=== PATIENT | male | born 1975 | race African-American/Black ===

== ENCOUNTER 2017-12-28 20:06 | Emergency (ER) | payer BC ==
[~2017-12-28] VITALS: Ht 172.7 cm; Wt 124.7 kg
--- OUTSIDE RECORDS SUMMARY | 2017-12-28 20:09 | XMS REPORT | Clinical Summary ---
Author Author MARIYA [facility] Address Unknown Phone Unavailable Care Team Providers Care Medical Geneticist Name Role Phone PCP Unavailable Allergies No Known Allergies Current Medications Prescription Sig. Disp. Refills Start End Date Status Date ARIPiprazole (ABILIFY) 5 Take 5 mg by mouth Active MG tablet nightly. lithium 300 MG capsule Take 300 mg by mouth Active nightly. prasugrel (EFFIENT) 10 mg Take 1 tablet (10 mg 30 tablet 1 06/13/20 Active Tab tablet total) by mouth daily. 15 ATORVASTATIN CALCIUM Take by mouth daily. Active (ATORVASTATIN ORAL) aspirin 81 MG EC tablet Take 81 mg by mouth Active daily. Active Problems Problem Noted Date Bipolar 1 disorder ([facility]) 06/13/2015 STEMI (ST elevation myocardial infarction) ([facility]) 06/09/2015 Social History Tobacco Use Types Packs/Day Years Used Date Never Smoker Smokeless Tobacco: Never Used Alcohol Use Drinks/Week oz/Week Comments Yes social drinker Sex Assigned at Date Recorded Not on file Last Filed Vital Signs Not on file Plan of Treatment Not on file Implants Implanted Type Area Online Community Manager Device Expiration Model / Identifier Date Serial / Lot Promus Premier Stents-Cor Right: ubigrate 10/07/2016 [id number] Implanted: Qty: 1 on 06/09/2015 [email or web address] [id number] / / [id number] Promus Premier Stents-Cor Right: ubigrate 07/09/2016 [id number] Implanted: Qty: 1 on 06/09/2015 [email or web address] Heart Lever [id number] / / [id number] Results Not on fileafter 12/27/2016
--- OUTSIDE RECORDS SUMMARY | 2017-12-28 20:09 | XMS REPORT ---
Author Author [facility] Address Unknown Phone Unavailable Care Team Providers Care Balance Clerk Name Role Phone SERGIO DOBBINS Unavailable Unavailable Problems This patient has no known problems. Allergies, Adverse Reactions, Alerts This patient has no known allergies or adverse reactions. Medications This patient has no known medications. Results Test Description Test Time Test Comments Text Results Atomic Results Result Comments Comprehensive Metabolic Panel 2016-11-22 09:13:00 Sodium (test code=NA) 139 mmol/L 135-145 Potassium (test code=K) 4.1 mmol/L 3.5-5.1 Chloride (test code=CL) 103 mmol/L 98-105 Carbon Dioxide (test code=CO2) 27 mmol/L 22-29 Glucose (test code=GLU) 95 mg/dL 70-115 Blood Urea Nitrogen (test code=BUN) 9 mg/dL 6-20 Creatinine (test code=CREAT) 1.2 mg/dL 0.7-1.2 Calcium (test code=CA) 9.4 mg/dL 8.3-10.5 Prot Total (test code=TP) 7.1 g/dL 6.4-8.3 Albumin (test code=ALB) 4.3 g/dL 3.5-5.2 A/G Ratio (test code=AGRATIO) 1.5 Ratio Globulin (test code=GLOB) 2.8 2.9-3.1 Bili Total (test code=TBIL) 1.0 mg/dL 0.1-0.9 Alk Phos (test code=APHOS) 64 U/L 40-129 AST (test code=AST) 37 U/L 1-40 ALT (test code=ALT) 63 U/L 1-41 BUN/Creatinine Ratio (test code=BCRATIO) 7.5 Anion Gap (test code=AGAP) 9 mmol/L 7-16 Estimated GFR (test code=GFR) >60 mL/min/1.73m2 eGFR (estimated Glomerular Filtration Rate) is an estimated value,calculated from the patient's serum creatinine using the MDRD equation.It is NOT the patient's actual GFR. The eGFR provides a more clinicallyuseful measure of kidney disease than serum creatinine alone.This calculation takes sex and race into account, if the informationis provided. If the race is not provided, and the patient isAfrican- [place], multiply by 1.212. If sex is not provided, and thepatient is female, multiply by 0.742. Results for patients <18 years ofage have not been validated by the MDRD study and should be interpretedwith caution.eGFR Result Interpretation:eGFR > or=60 is in the Normal RangeeGFR < 60 may mean kidney diseaseeGFR < 15 may mean kidney failureRanges recommended by the National Kidney Foundation,http://nkdep.nih.gov [id number] 09:13:00* Test Item Value Reference Range Comments [place] (test code=LI) 0.12 mmol/L 0.6-1.2 Comprehensive Metabolic [id number] 08:36:00* Test Item Value Reference Range Comments Sodium (test code=NA) CANCELED mmol/L 135-145 The released value 140 was canceled by JO on 11/22/2016 08:36 Potassium (test code=K) CANCELED mmol/L 3.5-5.1 The released value 4.1 was canceled by JO on 11/22/2016 08:36 Chloride (test code=CL) CANCELED mmol/L 98-105 The released value 17 was canceled by JO on 11/22/2016 08:36 Carbon Dioxide (test code=CO2) CANCELED mmol/L 22-29 The released value 18 was canceled by JO on 11/22/2016 08:36 Glucose (test code=GLU) CANCELED mg/dL 70-115 The released value 101 was canceled by JO on 11/22/2016 08:36 Blood Urea Nitrogen (test code=BUN) CANCELED mg/dL 6-20 The released value 9 was canceled by JO on 11/22/2016 08:36 Creatinine (test code=CREAT) CANCELED mg/dL 0.7-1.2 The released value 1.2 was canceled by JO on 11/22/2016 08:36 Calcium (test code=CA) CANCELED mg/dL 8.3-10.5 The released value 9.4 was canceled by JO on 11/22/2016 08:36 Prot Total (test code=TP) CANCELED g/dL 6.4-8.3 The released value 7.0 was canceled by JO on 11/22/2016 08:36 Albumin (test code=ALB) CANCELED g/dL 3.5-5.2 The released value 4.3 was canceled by JO on 11/22/2016 08:36 A/G Ratio (test code=AGRATIO) CANCELED Ratio The released value 1.6 was canceled by JO on 11/22/2016 08:36 Globulin (test code=GLOB) CANCELED 2.9-3.1 The released value 2.7 was canceled by JO on 11/22/2016 08:36 Bili Total (test code=TBIL) CANCELED mg/dL 0.1-0.9 The released value 1.0 was canceled by JO on 11/22/2016 08:36 Alk Phos (test code=APHOS) CANCELED U/L 40-129 The released value 64 was canceled by JO on 11/22/2016 08:36 AST (test code=AST) CANCELED U/L 1-40 The released value 40 was canceled by JO on 11/22/2016 08:36 ALT (test code=ALT) CANCELED U/L 1-41 The released value 60 was canceled by JO on 11/22/2016 08:36 BUN/Creatinine Ratio (test code=BCRATIO) CANCELED The released value 7.5 was canceled by JO on 11/22/2016 08:36 Anion Gap (test code=AGAP) CANCELED mmol/L 7-16 The released value 105 was canceled by JO on 11/22/2016 08:36 Estimated GFR (test code=GFR) CANCELED mL/min/1.73m2 eGFR (estimated Glomerular Filtration Rate) is an estimated value,calculated from the patient's serum creatinine using the MDRD equation.It is NOT the patient's actual GFR. The eGFR provides a more clinicallyuseful measure of kidney disease than serum creatinine alone.This calculation takes sex and race into account, if the informationis provided. If the race is not provided, and the patient isAfrican- [place], multiply by 1.212. If sex is not provided, and thepatient is female, multiply by 0.742. Results for patients <18 years ofage have not been validated by the MDRD study and should be interpretedwith caution.eGFR Result Interpretation:eGFR > or=60 is in the Normal RangeeGFR < 60 may mean kidney diseaseeGFR < 15 may mean kidney failureRanges recommended by the National Kidney Foundation,http://nkdep.nih.govThe released value >60 was canceled by JO on 11/22/2016 08:36 [id number] 07:58:00* Test Item Value Reference Range Comments [place] (test code=LI) 0.10 mmol/L 0.6-1.2 [id number] 07:42:00* Test Item Value Reference Range Comments Amphetamine (test code=AMPH) Negative Negative For diagnostic purposes only , positive results should always be assessedin conjunctionwith the patient's medical history,clinical examination and otherfindings.To fulfill legal requirements, a more specific alternate chemical methodmust be used inorder to obtain a Confirmed analytical result. GC/MS is the preferred confirmatory method. Barbiturates (test code=LAUREN) Negative Negative Benzodiazepine (test code=JUANITA) Negative Negative Cocaine (test code=COCA) Negative Negative Methadone (test code=MTHD) Negative Negative Opiates (test code=OPIA) Negative Negative PCP (test code=PCP) Negative Negative Propoxyphene (test code=PROPOX) Negative Negative THC (test code=THC) Negative Negative Alcohol, Urine (test code=ETOHU) <0.01 g/dL 0.00-0.01 Urinalysis [id number] 07:02:00* Test Item Value Reference Range Comments Color (test code=COLOR) Yellow Yellow,Straw,Pl yellow Clarity (test code=CLAR) Clear Clear Specific [place] (test code=SPGR) 1.027 1.001-1.035 pH (test code=PH) 6.5 5.0-9.0 Ketone (test code=KET) 5 mg/dL Negative Glucose (test code=GLUCUR) Negative mg/dL Negative Protein (test code=PROT) 25 mg/dL Negative Bilirubin (test code=BILI) Negative mg/dL Negative Occult Blood (test code=UDOB) Negative Negative Urobilinogen (test code=UROB) 1.0 mg/dL 0.2-1.0 Nitrite (test code=NIT) Negative Negative Leuk Esterase (test code=LEUK) Small Negative Micros Exam (test code=MEXAM) Indicated Epithelial Cells (test code=EPI) 3-5 /LPF 0-30 WBC, Urine (test code=UWBC) 5-10 /HPF 0-5 RBC, Urine (test code=URBC) 5-10 /HPF 0-5 Bacteria (test code=BACT) None /HPF CBC with [id number] 06:48:00* Test Item Value Reference Range Comments WBC (test code=WBC) 5.3 K/cumm 4.4-10.5 RBC (test code=RBC) 5.69 M/cumm 4.10-5.70 Hemoglobin (test code=HGB) 14.8 gm/dL 13.4-17.4 Hematocrit (test code=HCT) 46.3 % 38.7-52.0 MCV (test code=MCV) 81.5 fL 80-100 MCH (test code=MCH) 26.1 pg 27.0-32.5 MCHC (test code=MCHC) 32.0 g/dL 32.0-37.5 RDW (test code=RDW) 15.3 % 11.5-14.5 Platelet Count (test code=PLTCT) 275 K/cumm 140-440 MPV (test code=MPV) 8.0 fL Diff Method (test code=DIFFM) Auto Neutrophil (test code=NEUT) 58.3 % 36-70 Lymphocyte (test code=LYMPH) 32.2 % 12-44 Monocyte (test code=MONO) 7.8 % 0-11 Eosinophil (test code=EOS) 1.2 % 0-7 Basophil (test code=BASO) 0.6 % 0-2 Neutro Abs (test code=ANEUT) 3.1 K/cumm 1.6-7.4 Lymph Abs (test code=ALYMPH) 1.7 K/cumm 0.5-4.6 [place] Abs (test code=AMONO) 0.4 K/cumm 0.0-1.2 Eos Abs (test code=AEOS) 0.06 K/cumm 0.00-0.74 Baso Abs (test code=ABASO) 0.0 K/cumm 0.00-0.21
== END 2017-12-28 20:40 | disposition home or self-care (01) ==
LOC: FSED 20:06
CPT/HCPCS: 99282